=== PATIENT | female | born 1995 | race Caucasian/White ===

== ENCOUNTER 2016-05-23 14:25 | Emergency (ER) | payer BC ==
--- NOTE | 2016-05-23 15:21 | UC ---
Head Injury HPI - HPI Summary HPI Summary: Pt presents to [facility] for continued symptoms after syncope and a head injury on 05/05/16. Pt was evaluated in the [facility] ED on 05/05/16 and states she was hydrated and given Benadryl, did not have a CT, and was observed for approx 8 hrs. Pt describes the the incident on 05/05/16 as climbing on a fence, passing out because she was "dehydrated" which she has done before, and then striking the left side of her forehead on a cement wall. States she lost consciousness for 2 mins and that it was witnessed by a male friend who called the ambulance when pt had symptoms of memory loss and confusion. Pt did not have any seizure activity or incontinence. Pt states she did well initially after the injury and that she was able to rest over spring. However pt's symptoms are now worsening and she has headaches, lightheadedness, unable to walk long distances, nausea, shortness of breath, sleepy all the time, photosensitivity and feels like her heart is racing , fingers are tingling and diarrhea. Pt states she has been hydrating and no further syncopal episodes and no new head injury. Pt is a [employer] student and is having difficulty attending school and completing work. Pt has a PCP in [place] that she will make an appointment to see. - History Of Current Complaint Chief Complaint: UCHeadInjury Stated Complaint: CONCUSSION FOLLOW UP/NAUSEA,MEMORY LOSS Time Seen by Provider: 05/23/16 14:35 Hx Obtained From: Patient Hx Last Menstrual Period: 3 WKS AGO ?: No Onset/Duration: Sudden Onset, Lasting Weeks, Still Present Severity Currently: Moderate Severity Initially: Moderate Pain Intensity: 7 Pain Scale Used: 0-10 Numeric Character: Dull Aggravating Factor(s): Nothing Alleviating Factor(s): Nothing Associated Signs And Symptoms: Positive: LOC (Time In Secs./Mins/Hrs) - 2 mins, on 05/05/16, Confusion, Memory Loss - pre and post. Negative: Seizure, Epistaxis , Dental Malocclusion, Neck Pain, Nausea, Vomiting - Risk Factors SDH Risk Factor: Recent Trauma - Allergies/Home Medications Allergies/Adverse Reactions: Allergies Allergy/AdvReac Type Severity Reaction Status Date / Time seasonal Allergy Congestion Uncoded 05/23/16 14:47 Home Medications: Home Medications Acetaminophen [Extra Strength Acetaminop] 1,000 mg PO Q6H PRN 05/23/16 [History Confirmed 05/23/16] Norgestimate-Ethinyl Estradiol [Sprintec 28 0.25-35 mg-Mcg] 1 tab PO DAILY 05/23 [History Confirmed 05/23/16] PMH/Surg Hx/FS Hx/Imm Hx Previously Healthy: Yes - Surgical History Surgical History: None - Family History Known Family History: Positive: Cardiac Disease - Social History Occupation: Student Alcohol Use: Occasionally Substance Use Type: None Smoking Status (MU): Never Smoked Tobacco Review of Systems Constitutional: Negative Eyes: Photophobia Neurovascular: Other Neurological: Headache - left frontal Psychological: Negative All Other Systems Reviewed And Are Negative: Yes Physical Exam Triage Information Reviewed: Yes Appearance: Well-Nourished, Ill-Appearing - photophobic, Pain Distress Vital Signs: Initial Vital Signs Temp 99.1 F 05/23/16 14:36 Pulse 90 05/23/16 14:36 Resp 22 05/23/16 14:36 BP 129/78 05/23/16 14:36 Pulse Ox 100 05/23/16 14:36 Vital Signs Reviewed: Yes Eyes: Positive: Conjunctiva Clear ENT: Positive: Pharynx normal, TMs normal, Other: - No Rodriguez's sign, no septal hematoma, no scalp hematoma or tenderness, Fundi: discs sharp and flat, no hemorrhage, normal cup to disc. PERRL EOMI Neck: Positive: Supple, Nontender Respiratory: Positive: Lungs clear, Normal breath sounds, No respiratory distress Cardiovascular: Positive: No Murmur, Pulses Normal, Brisk Capillary Refill Abdomen Description: Positive: Nontender, No Organomegaly, Soft Bowel Sounds: Positive: Present Musculoskeletal: Positive: Strength Intact, ROM Intact Neurological: Positive: Alert, Muscle Tone Normal, Other: - CN II-XII intact, motor 5/5, sensation intact, reflexes knee and ankle 2+, gait WNL. photophobic Psychological Exam: Normal Skin Exam: Normal Head Injury Course/Dx - Course Course Of Treatment: I spoke with pt about pros and cons of imaging. Pt has a normal neurologic exam and she is 16 days post head injury and was evaluated in an ED on the day of her injury. Urgent CT imaging is not indicated at this time. Pt also prefers not to have imaging if not necessary, stating she has "had a lot of xrays". She understands that radiation is cumulative. Will give pt time off school and have pt see sports medicine for concussion evaluation and treatment. - Differential Dx/Diagnosis Differential Diagnosis/HQI/PQRI: Cerebral Contusion, Concussion With LOC, Contusion, Intracranial Bleed, Skull Fracture, Other - post concussion syndrome. Provider Diagnoses: post concussion syndrome Discharge - Discharge Plan Condition: Stable Disposition: HOME Patient Education Materials: Post Concussion Syndrome (ED) Forms: *School Release Referrals: Ayden Henson MD [Medical Doctor] - 2 Days (for concussion evaluation and treatment ) Non Staff,Doctor [Primary Care Provider] -
[2016-05-23 15:40] VITALS: BP 129/78
== END 2016-05-23 15:50 | disposition home or self-care (01) ==
LOC: UCCORT 14:25
DX: F07.81 Postconcussional syndrome (principal); G44.309 Post-traumatic headache, unspecified, not intractable
CPT/HCPCS: 99211; G0463